=== PATIENT | female | born 1960 | race Caucasian/White ===

== ENCOUNTER → 2017-01-05 | Outpatient (CLI) | payer BC, OTHER ==
[~2017-01-05] MED LIST: CALC500C70 PO; GLUC10007 PO; IPRA1AER2 INH; LORA-741 PO; METO25TA56 PO; OXYC20TA50 PO; PANT40TA PO; ROPI0.5T15 PO
== END | disposition home or self-care (01) ==
LOC: C.RDSM 08:25
PROVIDERS: ATTEND Physical Medicine & Rehabilitation Sports Medicine
DX: M19.012 Primary osteoarthritis, left shoulder (principal); Z96.612 Presence of left artificial shoulder joint; M25.511 Pain in right shoulder